=== PATIENT | female | born 1960 | race Caucasian/White ===

== ENCOUNTER → 2016-09-12 | Outpatient (CLI) | payer OTHER | END | disposition home or self-care (01) | LOC: MAMMO 08:22 | PROVIDERS: ATTEND Family Medicine | DX: Z12.31 Encounter for screening mammogram for malignant neoplasm of breast (principal) | CPT/HCPCS: G0202; G0279 ==

== ENCOUNTER 2016-12-13 16:55 | Emergency (ER) | payer OTHER ==
[2016-12-13 17:14] VITALS: TEMP 98.7
--- NOTE | 2016-12-13 17:22 | ED.PDOC ---
History of Present Illness - General Chief Complaint: General Stated Complaint: LLE pain Time Seen by Provider: 12/13/16 17:14 Source: patient, RN notes reviewed, Vital Signs reviewed Exam Limitations: no limitations - History of Present Illness Initial Comments: Patient comes to ER with c/o Left thigh tightness with walking. Also a pressure type pain @ his distal hamstring with walking. Also feels there is a slight discoloration to her leg. She has a DVT in that leg 5 years ago and is concerned she has another one. Timing/Duration: 24 hours Severity: mild Improving Factors: nothing Worsening Factors: movement Associated Symptoms: denies symptoms Allergies/Adverse Reactions: Allergies Chocolate Allergy (Verified 12/13/16 17:14) Home Medications: Ambulatory Orders Rivaroxaban [Xarelto] 15 mg PO BID #42 tab 12/13/16 Review of Systems - Review of Systems Constitutional: States: no symptoms reported Respiratory: States: no symptoms reported Cardiology: States: no symptoms reported Musculoskeletal: States: see HPI Skin: States: see HPI, change in color Neurological: States: no symptoms reported All other Systems: No Change from Baseline Past Medical History (General) - Patient Medical History Hx Stroke: No Hx Dementia: No Hx of COPD: No Hx Cardiac Disorders: No Hx Congestive Heart Failure: No Hx Hypertension: No Hx Thyroid Disease: No Hx Gastroesophageal Reflux: No Surgical History: cholecystectomy, other - Vaccination History Hx Influenza Vaccination: Yes - Social History Hx Tobacco Use: No Hx Alcohol Use: No Hx Substance Use: No Hx Substance Use Treatment: No Hx Depression: No - Female History Patient is a Female of Child Bearing Age (10 -59 yrs old): Yes Patient : No Family Medical History - Family History Mother Family History: Unknown Physical Exam - Physical Exam General Appearance: Alert, Comfortable, No apparent distress, Well Developed, Well Groomed, Well Hydrated, Well Nourished Cardiovascular/Chest: normal peripheral pulses Peripheral Pulses: dorsalis pedis,right: 2+, dorsalis pedis,left: 2+ Extremity: non-tender, no pedal edema, no calf tenderness, swelling - mild Neurologic: no motor/sensory deficits, alert, normal mood/affect, oriented x 3 Skin Exam: normal color, warm/dry Comments: Vital Signs 12/13/16 17:04 Temperature 98.7 F Pulse Rate [ 88 pulse ox] Respiratory 20 Rate Blood Pressure 161/93 [Left Arm] O2 Sat by Pulse 96 Oximetry Progress - EKG/XRAY/CT Xray Comments: [place] doppler: DVT Left superficial femoral and popliteal veins per Rad Departure - Departure Clinical Impression: Deep vein thrombosis (DVT) of popliteal vein of left lower extremity Qualifiers: Chronicity: acute Qualified Code(s): I82.432 - Acute embolism and thrombosis of left popliteal vein Deep vein thrombosis (DVT) of femoral vein of left lower extremity Qualifiers: Chronicity: acute Qualified Code(s): I82.412 - Acute embolism and thrombosis of left femoral vein Time of Disposition: 18:36 Disposition: Discharge to Home or Self Care Condition: Good Departure Forms: ED Discharge - Pt. Copy, Patient Portal Self Enrollment Instructions: DI for Deep Vein Thrombosis Diet: resume usual diet Activity: increase activity as tolerated Referrals: Humberto Marks MD [Primary Care Provider] - 1-2 Weeks Prescriptions: Rivaroxaban [Xarelto] 15 mg PO BID #42 tab Home Medications: Ambulatory Orders Rivaroxaban [Xarelto] 15 mg PO BID #42 tab 12/13/16 Additional Instructions: After 3 weeks will need to switch to Xarelto 20mg daily and continue for at least 12 months
--- NOTE | 2016-12-13 18:19 | US ---
EXAM DESCRIPTION: Venous,Lower Extremity LT CLINICAL HISTORY: 56 years Female post thigh pain/tightness COMPARISON: None. TECHNIQUE: Duplex imaging performed to evaluate the left lower extremity venous structures. Compression imaging and augmentation imaging performed. The common femoral, superficial femoral, popliteal, greater saphenous and posterior tibial veins were examined. FINDINGS: There appears to be partially occlusive thrombus in the left superficial femoral vein and occlusive thrombus in the left popliteal vein. The left lower extremity venous structures otherwise appear patent. IMPRESSION: There is thrombus in the left superficial femoral vein and in the left popliteal vein consistent with DVT. The report was called to Dr. Guzmán at approximately 6:15 PM. Electronically signed by: Varun Grey MD 12/13/2016 6:18 PM CDT
[2016-12-13] MEDS ORDERED: RIVAROXABAN 15 MG TAB PO ONE (18:25)
[2016-12-13 18:58] VITALS: BP 126/90; O2SAT 97
== END 2016-12-13 18:58 | disposition home or self-care (01) ==
LOC: ER 16:55
DX: I82.432 Acute embolism and thrombosis of left popliteal vein (principal); I82.412 Acute embolism and thrombosis of left femoral vein

== ENCOUNTER 2017-05-06 12:48 | Emergency (ER) | payer OTHER ==
[2017-05-06 13:03] VITALS: TEMP 99.4; O2SAT 96
--- NOTE | 2017-05-06 13:19 | ED.PDOC ---
History of Present Illness - General Chief Complaint: Headache Stated Complaint: headache Time Seen by Provider: 05/06/17 13:16 Source: patient Exam Limitations: no limitations Additional Information: 57 YEAR OLD HERE FOR EVALUATION OF HEADACHE LAST 3 DAYS NOT GETTING ANY BETTER SHE HAS NO HISTORY OF TRAUMA NO FEVER CHILLS NO DENTAL OR SINUS SYMPTOMS HER HEADACHE IS LIMITED TO THE RIGHT OCCIPUT AND PARIETAL REGION ASSOCIATED WITH WATERING FROM RIGHT EYE NO NECK RIGIDITY SHE IS ON XARALTO FOR SECOND TIME DVT SINCE NOVEMBER OF 2016 - History of Present Illness Timing/Duration: increasing Quality: moderate Head Injury Location: occipital, parietal Recent Head Trauma: no recent headache/trauma Improving Factors: nothing Worsening Factors: nothing Allergies/Adverse Reactions: Allergies Chocolate Allergy (Verified 05/06/17 13:02) Home Medications: Ambulatory Orders [id number] W/COD #3 [Fiorinal w/Codeine #3] 30 mg PO Q6HRS PRN #1 cap MDD 4 05/06/17 Rivaroxaban [Xarelto] 20 mg PO BID 05/06/17 Review of Systems - Review of Systems Constitutional: States: no symptoms reported EENTM: States: no symptoms reported Respiratory: States: no symptoms reported Cardiology: States: no symptoms reported Genitourinary: States: no symptoms reported Skin: States: no symptoms reported Neurological: States: see HPI Endocrine: States: no symptoms reported Hematologic/Lymphatic: States: no symptoms reported Past Medical History (General) - Patient Medical History Hx Stroke: No Hx Dementia: No Hx of COPD: No Hx Cardiac Disorders: No Hx Congestive Heart Failure: No Hx Hypertension: No Hx Thyroid Disease: No Hx Gastroesophageal Reflux: No Surgical History: other - Vaccination History Hx Influenza Vaccination: Yes Hx Pneumococcal Vaccination: Yes - Social History Hx Tobacco Use: No Hx Alcohol Use: No Hx Substance Use: No Hx Substance Use Treatment: No Hx Depression: No - Female History Patient : No Family Medical History - Family History Mother Family History: Unknown Physical Exam - Physical Exam General Appearance: Alert, Comfortable Eyes, Ears, Nose, Throat Exam: PERRL/EOMI, normal ENT inspection, TMs normal Neck: non-tender, full range of motion, supple Cardiovascular/Chest: normal peripheral pulses, regular rate, rhythm, no edema, no gallop, no JVD Respiratory: chest non-tender, lungs clear, normal breath sounds, no respiratory distress, no accessory muscle use Extremity: normal range of motion, non-tender, normal inspection, no pedal edema Mental Status: alert, 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 Copy, Patient Portal Self Enrollment Instructions: DI for Headache Diet: resume usual diet Referrals: Alyse Davies NP [Primary Care Provider] - 1-2 Weeks Prescriptions: [id number] W/COD #3 [Fiorinal w/Codeine #3] 30 mg PO Q6HRS PRN #1 cap MDD 4 PRN Reason: Headache Or Mild Pain Home Medications: Ambulatory Orders [id number] W/COD #3 [Fiorinal w/Codeine #3] 30 mg PO Q6HRS PRN #1 cap MDD 4 05/06/17 Rivaroxaban [Xarelto] 20 mg PO BID 05/06/17
[2017-05-06] MEDS ORDERED: KETOROLAC TROMETHAMINE INJ 60 MG/2 ML VIAL IM ONE (13:21)
--- NOTE | 2017-05-06 13:52 | CT ---
PROCEDURE: Head HISTORY: HEADACHE Indication: Same as above Comparison: None Technique: CT of the head was done without intravenous contrast was done in the orthogonal planes. This exam was performed according to our departmental dose-optimization program, which includes automated exposure control, adjustment of the mA and/or KV according to the patient's size and/or use of iterative reconstruction technique. FINDINGS: There is no intracranial hemorrhage, midline shift mass effect or acute focal infarct If clinical concern exists regarding an acute ischemic/vascular pathology being responsible for patient's symptomatology, an MRI of the brain is more sensitive than the current study, in ruling out such a possibility. There is good hobson/white matter differentiation. The ventricular system is normal. The mastoid air cells are unremarkable . The paranasal sinuses are unremarkable . There is no visualization of acute fractures involving the calvarium or the skull base. IMPRESSION: There is no acute intracranial abnormality. Electronically signed by: Jaden Deshpande MD 05/06/2017 1:51 PM CDT Workstation: [id number]
[2017-05-06 14:33] VITALS: BP 174/83
== END 2017-05-06 14:07 | disposition home or self-care (01) ==
LOC: ER 12:48
DX: R51 Headache (principal); Z79.01 Long term (current) use of anticoagulants; I82.409 Acute embolism and thrombosis of unspecified deep veins of unspecified lower extremity

== ENCOUNTER → 2017-10-17 | Outpatient (CLI) | payer OTHER | LOC: LAB.O 14:02 | PROVIDERS: ATTEND Family Medicine | DX: D68.2 Hereditary deficiency of other clotting factors (principal) ==

== ENCOUNTER → 2017-10-31 | Outpatient (CLI) | payer OTHER | LOC: YCFC.O 14:14 | PROVIDERS: ATTEND Family Medicine | DX: D68.2 Hereditary deficiency of other clotting factors (principal) ==

== ENCOUNTER → 2017-11-14 | Outpatient (CLI) | payer OTHER | LOC: LAB.O 15:32 | PROVIDERS: ATTEND Family Medicine | DX: D68.2 Hereditary deficiency of other clotting factors (principal) ==

== ENCOUNTER → 2017-11-28 | Outpatient (CLI) | payer OTHER | LOC: YCFC.O 11:32 | PROVIDERS: ATTEND Family Medicine | DX: D68.2 Hereditary deficiency of other clotting factors (principal) ==

== ENCOUNTER → 2017-12-08 | Outpatient (CLI) | payer OTHER | LOC: YCFC.O 08:24 | PROVIDERS: ATTEND Family Medicine | DX: D68.2 Hereditary deficiency of other clotting factors (principal) ==

== ENCOUNTER → 2017-12-28 | Outpatient (CLI) | payer OTHER | LOC: LAB.O 15:27 | PROVIDERS: ATTEND Family Medicine | DX: D68.2 Hereditary deficiency of other clotting factors (principal) ==

== ENCOUNTER → 2018-01-24 | Outpatient (CLI) | payer OTHER | LOC: YCFC.O 01-23 14:43 | PROVIDERS: ATTEND Family Medicine | DX: D68.2 Hereditary deficiency of other clotting factors (principal) ==

== ENCOUNTER → 2018-02-05 | Outpatient (CLI) | payer OTHER | LOC: LAB.O 14:07 | PROVIDERS: ATTEND Family Medicine | DX: D68.2 Hereditary deficiency of other clotting factors (principal) ==

== ENCOUNTER → 2018-03-21 | Outpatient (CLI) | payer BC | LOC: YCFC.O 08:34 | PROVIDERS: ATTEND Family Medicine | DX: D68.2 Hereditary deficiency of other clotting factors (principal) ==

== ENCOUNTER → 2018-04-25 | Outpatient (CLI) | payer BC | LOC: LAB.O 08:40 | PROVIDERS: ATTEND Family Medicine | DX: D68.2 Hereditary deficiency of other clotting factors (principal) ==

== ENCOUNTER → 2018-12-13 | Outpatient (CLI) | payer OTHER | LOC: YCFC.O 16:49 | PROVIDERS: ATTEND Nurse Practitioner | DX: D68.2 Hereditary deficiency of other clotting factors (principal); Z86.718 Personal history of other venous thrombosis and embolism ==

== ENCOUNTER → 2019-05-10 | Outpatient (CLI) | payer OTHER | LOC: YCFC.O 11:29 | PROVIDERS: ATTEND Family Medicine | DX: D68.2 Hereditary deficiency of other clotting factors (principal) ==

== ENCOUNTER → 2019-05-21 | Outpatient (CLI) | payer OTHER | LOC: YCFC.O 16:26 | PROVIDERS: ATTEND Family Medicine | DX: D68.2 Hereditary deficiency of other clotting factors (principal) ==

== ENCOUNTER → 2019-06-06 | Outpatient (CLI) | payer OTHER | LOC: YCFC.O 16:30 | PROVIDERS: ATTEND Family Medicine | DX: N95.0 Postmenopausal bleeding (principal) ==

== ENCOUNTER → 2019-06-11 | Outpatient (CLI) | payer OTHER ==
--- NOTE | 2019-06-12 14:00 | US ---
EXAM DESCRIPTION: Pelvic,Non-OB (accession [id number]), Pelvis Transvaginal (accession [id number]): Ultrasound. CLINICAL HISTORY: 59 years Female POSTMENOPAUSAL BLEEDING COMPARISON: None. TECHNIQUE: Transcutaneous scanning through the urine filled bladder. Endovaginal scanning. Gupta-scale and Doppler modes. FINDINGS: Uterus 9.5 x 4.6 x 4.1 cm. 92.9 mL. Endometrium 15 mm. Myometrium heterogeneous. 1.7 cm cyst on the right. Hypoechoic mass in the anterior fundus measuring 2.5 x 1.3 x 1.2 cm. Uterus not retroverted. Cervix partially visualized. Small cysts.. Cul-de-sac: tab. Right ovary 2.1 x 1.7 x 1.0 cm. 1.8 mL. Normal color Doppler vascularity. No follicles or cysts. No adnexal mass or free fluid. Left ovary not seen. No adnexal mass or free fluid. IMPRESSION: 1. Normal size of uterus in normal position. 1.7 cm cyst to the right of the endometrium. 2.5 cm mass most likely fibroid anterior myometrium. Endometrial thickening greater than 5 mm without fluid is concerning in a postmenopausal patient. Nabothian cysts. 2. Right ovary is unremarkable. No adnexal mass or free fluid. No fluid in the cul-de-sac. Electronically signed by: Anjel Loco MD 06/12/2019 1:58 PM CDT
--- NOTE | 2019-06-12 14:00 | US ---
EXAM DESCRIPTION: Pelvic,Non-OB (accession [id number]), Pelvis Transvaginal (accession [id number]): Ultrasound. CLINICAL HISTORY: 59 years Female POSTMENOPAUSAL BLEEDING COMPARISON: None. TECHNIQUE: Transcutaneous scanning through the urine filled bladder. Endovaginal scanning. Gupta-scale and Doppler modes. FINDINGS: Uterus 9.5 x 4.6 x 4.1 cm. 92.9 mL. Endometrium 15 mm. Myometrium heterogeneous. 1.7 cm cyst on the right. Hypoechoic mass in the anterior fundus measuring 2.5 x 1.3 x 1.2 cm. Uterus not retroverted. Cervix partially visualized. Small cysts.. Cul-de-sac: tab. Right ovary 2.1 x 1.7 x 1.0 cm. 1.8 mL. Normal color Doppler vascularity. No follicles or cysts. No adnexal mass or free fluid. Left ovary not seen. No adnexal mass or free fluid. IMPRESSION: 1. Normal size of uterus in normal position. 1.7 cm cyst to the right of the endometrium. 2.5 cm mass most likely fibroid anterior myometrium. Endometrial thickening greater than 5 mm without fluid is concerning in a postmenopausal patient. Nabothian cysts. 2. Right ovary is unremarkable. No adnexal mass or free fluid. No fluid in the cul-de-sac. Electronically signed by: Anjel Loco MD 06/12/2019 1:58 PM CDT
== END ==
LOC: US 15:16
PROVIDERS: ATTEND Family Medicine
DX: N95.0 Postmenopausal bleeding (principal); N85.8 Other specified noninflammatory disorders of uterus

== ENCOUNTER → 2019-07-26 | Outpatient (CLI) | payer OTHER | LOC: LAB.O 07-25 13:52 | PROVIDERS: ATTEND Family Medicine | DX: E78.5 Hyperlipidemia, unspecified (principal) ==

== ENCOUNTER → 2020-02-06 | Outpatient (CLI) | payer SELFPAY | LOC: YCFC.O 11:56 | PROVIDERS: ATTEND Nurse Practitioner | DX: D68.2 Hereditary deficiency of other clotting factors (principal); E78.5 Hyperlipidemia, unspecified; E87.6 Hypokalemia ==

== ENCOUNTER → 2020-04-03 | Outpatient (CLI) | payer SELFPAY | LOC: YCFC.O 12:41 | PROVIDERS: ATTEND Nurse Practitioner | DX: D68.2 Hereditary deficiency of other clotting factors (principal) ==